=== PATIENT | female | born 2005 | race Two or more races ===

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

== ENCOUNTER → 2024-07-25 | Outpatient (CLI) | payer BC, OTHER ==
--- NOTE | 2024-07-25 13:37 | MR ---
EXAMINATION TYPE: MR brain wo/w con DATE OF EXAM: 07/25/2024 COMPARISON: NONE HISTORY: Headaches, Dizziness, Joint Pain TECHNIQUE: Multiplanar, multisequence images of the brain and brainstem is performed without and with IV contras t, utilizing 5.5 mL intravenous Gadobutrol . FINDINGS: Diffusion weighted images demonstrate no evidence of a recent infarct or other diffusion ab normality. There is no extra-axial fluid collection or significant white matter signal abnormality. The ventricular system and cisternal spaces are normal in size and appearance. The brain volume is age appropriate. No suspicious intraparenchymal blood products. Midline structures demonstrate normal morphology. The craniocervical junction appears within normal limits. Post contrast images demonstrate no abnormal enhancement. The dural venous sinuses appear pa tent. The visualized sinuses are clear and the globes are intact. No suspicious opacification of mast oid air cells bilaterally. IMPRESSION: Unremarkable study. [facility], , 07/25/2024 1:34 PM
== END | disposition home or self-care (01) ==
LOC: RADMRIMAIN 09:03
PROVIDERS: ATTEND Family Medicine
DX: R68.89 Other general symptoms and signs (principal); R51.9 Headache, unspecified; H83.3X9 Noise effects on inner ear, unspecified ear
CPT/HCPCS: 70553; A9585